=== PATIENT | male | born 1970 | race Caucasian/White ===

== ENCOUNTER 2023-09-29 22:56 | Inpatient (IN) | payer SELFPAY ==
[~2023-09-29] VITALS: Ht 180.3 cm; Wt 106.1 kg
--- NOTE | 2023-09-29 11:57 | NUR ---
REPORT RECEIVED FROM SANTOSH MENDIOLA
[~2023-09-29 22:56] MED LIST: Heparin Sodium,Porcine 5,000 UNIT/0.5 ML SDV SC ONE; Nitroglycerin 0.4 MG SUBL SL ONE
[2023-09-29] MEDS ORDERED: FentaNYL Citrate 50 MCG/ML 2 ML Injection IV ONE (23:10)
[2023-09-29 23:14] LABS: Hematocrit 45.4 % (37.0-53.0); Hemoglobin 15.6 g/dL (13.5-17.5); Mean Corpuscular HGB 29.7 pg (26.0-34.0); Mean Corpuscular HGB Conc 34.4 g/dL (31.5-36.5); Mean Corpuscular Volume 86 fL (80-100); Mean Platelet Volume 9.1 fL (9.1-12.4); Platelet Count 240 K/mm3 (150-400); RDW Coefficient Variation 13.4 % (11.7-14.2); RDW Standard Deviation 41.9 fL (35.1-46.3); Red Blood Cell Count 5.26 M/mm3 (4.30-5.90); White Blood Cell Count 10.44 K/mm3 (4.00-11.30)
[2023-09-29] MEDS ORDERED: Morphine Sulfate 4 MG/1 ML Injection IV ONE (23:20)
[2023-09-29] MEDS ORDERED: Ondansetron HCl 2 MG / ML 2ML Vial IV ONE (23:20)
[2023-09-29] MEDS ORDERED: Clopidogrel Bisulfate 75 MG Tab PO ONE (23:25)
[2023-09-29] MEDS ORDERED: Nitroglycerin 0.4 MG SUBL SL PRN (23:25)
[2023-09-29] MEDS ORDERED: Heparin Sodium,Porcine 5,000 UNIT/0.5 ML SDV SC ONE (23:25)
[2023-09-29 23:29] LABS: Albumin, Blood 3.6 g/dL (3.4-5.0); Albumin/Globulin Ratio 1.1 (0.8-1.8); Bilirubin, Total 0.4 mg/dL (0.1-1.0); Bun/Creatinine Ratio 16.5 (12.0-20.0); Calcium, Blood 8.8 mg/dL (8.5-10.1); Creatinine, Blood 1.03 mg/dL (0.60-1.20); Globulin, Blood 3.4 g/dL (2.2-4.0); Potassium, Blood 3.8 mmol/L (3.5-5.5)
[2023-09-29 23:37] LABS: BASOPHILS PERCENT MAN 0 % (0-2); EOSINOPHILS PERCENT MAN 0 % (0-6); LYMPHOCYTES % ATYPICAL MANUAL 1 % (0-0); LYMPHOCYTES PERCENT MAN 46 % (21-46); MONOCYTES ABSOLUTE MAN 0.93 K/mm3 (0.16-1.47); MONOCYTES PERCENT MAN 9 % (4-13); NEUTROPHILS ABSOLUTE MAN 4.59 K/mm3 (1.96-9.15); SEG NEUTROPHILS PERCENT MAN 44 % (41-73); TOTAL CELLS COUNTED 100
[2023-09-29 23:48] LABS: D-Dimer, Quantitative 0.61 mg/L FEU (0.00-0.52); International Normalized Ratio 0.93; Prothrombin Time Results 9.8 Sec (9.7-11.5)
[2023-09-29 23:48] LABS: CHOL/HDL RATIO 4.3; Cholesterol 181 mg/dL (50-200); HDL Cholesterol 42 mg/dL (>39); LDL/HDL RATIO 2.9; Low Density Lipoprotein Chol 123 mg/dL (0-110); Magnesium, Blood 2.2 mg/dL (1.6-2.4); Triglycerides 82 mg/dL (30-160); Very Low Density Lipoprot Chol 16 mg/dL (6-32)
[2023-09-29] MEDS ORDERED: Heparin Sodium 5000 Units/ML 1ML MDV IV ONE (23:50)
[2023-09-29] MEDS ORDERED: FentaNYL Citrate 50 MCG/ML 2 ML Injection ONE (23:54)
[2023-09-29] MEDS ORDERED: Heparin Sodium 1000 Units/ML 10ML MDV ONE ×2 (23:54→23:55)
[2023-09-29] MEDS ORDERED: Midazolam HCl 1MG / ML 2ML Vial ONE (23:54)
[2023-09-29] MEDS ORDERED: NS 1,000 ML IV ONE ×2 (23:54→23:55)
[2023-09-29] MEDS ORDERED: Tirofiban HCL Monohydrate 3.75 MG/15 ML Vial ONE (23:54)
[2023-09-29] MEDS ORDERED: Verapamil HCL 2.5 MG/ML 2ML Injection ONE (23:55)
[2023-09-29] MEDS ORDERED: NS 250 ML IV ONE (23:55)
[2023-09-30] VITALS (80 sets, daily range): BP systolic 117–168; BP diastolic 85–131
[2023-09-30] MEDS ORDERED: Morphine Sulfate 4 MG/1 ML Injection ONE (00:09)
[2023-09-30] MEDS ORDERED: FentaNYL Citrate 50 MCG/ML 2 ML Injection IV PRN ×2 (00:30→17:00)
[2023-09-30] MEDS ORDERED: FLU VACC QS2023-24(6MOS UP)/PF 60 MCG/0.5 ML SYRINGE IM ONE (00:30)
[2023-09-30] MEDS ORDERED: HydrALAZINE HCl 20 MG / ML 1ML Vial IV PRN (00:30)
[2023-09-30] MEDS ORDERED: NS 1,000 ML IV SCH (01:05)
--- NOTE | 2023-09-30 01:36 | NUR ---
ASSUMPTION OF CARE AT 0105 PT ARRIVED TO UNIT FROM [facility] MACHINE ADJUSTER VIA HOSPITAL BED AT 0105. PT ALERT, ORIENTED, AND COOPERATIVE WITH CARE. DENIES CHEST PAIN AND SOB AT THIS TIME. NO ACUTE NEEDS IDENTIFIED AT THIS TIME. SEE SHIFT ASSESSMENT FOR FULL DETAILS.
--- NOTE | 2023-09-30 06:02 | NUR ---
SHIFT SUMMARY PT REMAINED ALERT AND ORIENTED X 4 T/O ENTIRETY OF SHIFT. DENIED PAIN. ABLE TO FOLLOW VERBAL COMMANDS AND MAKES PURPOSEFUL MOVEMENTS. HR WAS SR IN 80'S. BP VERY ELEVATED - SBP'S ON 160'S AND DBP'S GREAT 130. DENIED CP T/O ENTIRETY OF SHIFT. PATIENT REMAINED ON ROOM AIR, DENIED SOB. NO BM THIS SHIFT. HEART HEALTHY DIET ORDERED. ONE UNMEASURED VOID INTO ROOM COMMODE. PT AMBULATED W/O DIFFICULTY - DENIED DIZZINESS, CHEST PAIN, OR SOB WITH AMBULATION. TR BAND TO R WRIST WITH SUCCESSFUL 13mL DEFLATION. 20G PIV TO LFA INFUSING NS AT 200mL/HR, 20G PIV TO RAC. CALL LIGHT IN REACH. WILL CONTINUE TO MONITOR AND REPORT TO ONCOMING NURSE.
--- NOTE | 2023-09-30 07:15 | NUR ---
Assumed care of pt at 0700. Bedside report received from Michael FROST and Kathleen FROST. Pt A&O x 4. Answers questions, follows commands, verbalizes needs. Pleasant and cooperative with care. Tallkative. SpO2 90% or greater RA. SR per monitor. BP high. Per report, provider aware of high BP over night. Plan to give scheduled doses of metoprolol and lisinopril.
[2023-09-30] MEDS ORDERED: Metoprolol Tartrate 25 MG Tab PO ONE (08:35)
[2023-09-30] MEDS ORDERED: Lisinopril 5 MG Tab PO ONE (08:35)
--- NOTE | 2023-09-30 08:45 | NUR ---
Dr Deleon in to see patient. Discussed high SBPs with provider who increased dose of lisinopril and metoprolol and ordered for additional doses to be given now.
[2023-09-30] MEDS ORDERED: Aspirin 81 MG Chew PO SCH ×2 (09:00)
[2023-09-30] MEDS ORDERED: Clopidogrel Bisulfate 75 MG Tab PO SCH (09:00)
[2023-09-30] MEDS ORDERED: Heparin Sodium,Porcine 5,000 UNIT/0.5 ML SDV SC SCH (09:00)
[2023-09-30] MEDS ORDERED: Atorvastatin 40 MG Tab PO SCH (09:00)
[2023-09-30] MEDS ORDERED: Metoprolol Tartrate 25 MG Tab PO SCH (09:00)
[2023-09-30] MEDS ORDERED: Lisinopril 5 MG Tab PO SCH (09:00)
[2023-09-30 09:26] LABS: U Amphetamine Screen Not Detected; U Barbituate Screen Not Detected; U Benzodiazapine Screen Not Detected; U Buprenorphine Screen Not Detected; U Cannabinoids Screen Not Detected; U Cocaine Screen Not Detected; U Methadone Screen Not Detected; U Methamphetamine Screen Not Detected; U Opiates Screen DETECTED; U Oxycodone Screen Not Detected; U Phencyclidine Screen Not Detected
[2023-09-30] MEDS ORDERED: Apixaban 5 MG Tab PO SCH (10:00)
[2023-09-30] MEDS ORDERED: Heparin Sodium,Porcine 5,000 UNIT/0.5 ML SDV SC ONE (10:45)
--- NOTE | 2023-09-30 11:00 | NUR ---
This RN was notified that pt was experiencing chest pain. He states he woke up, short of breath, but this has resovled. He states chest pain is 5/10 in severity and feels the same as it did when he presented to the emergency department, however at that time it was 10/10. Call placed to Dr Deleon who presented to bedside shortly afterwards. He reported that pt has clot in LV. Provider stated that eliquis is adequate and pt does not need heparin drip. Okay to give patient fentanyl for pain.
--- NOTE | 2023-09-30 11:29 | NUR ---
On pain reassessment, pt stated that pain had not improved. He also reported "cold-sweats". This RN noted that pt was profusely diaphoretic. Pt was also minimally talkative. Voice was soft and pt was preferring to speak in 2-3 word sentences. This is inconsistent behavior with what this RN noted previously in shift. Asked if he was feeling short of breath and he stated "not really" and stated "just feeling off, I'm not sure how to describe it. I'm usually over descriptive". Notified Dr Deleon who again presented to bedside and states plan to take patient to chemistry laboratory technician.
[2023-09-30] MEDS ORDERED: Verapamil HCL 2.5 MG/ML 2ML Injection ONE (11:35)
[2023-09-30] MEDS ORDERED: NS 250 ML IV ONE (11:36)
[2023-09-30] MEDS ORDERED: NS 1,000 ML IV ONE ×2 (11:36→11:55)
[2023-09-30] MEDS ORDERED: FentaNYL Citrate 50 MCG/ML 2 ML Injection ONE (11:55)
[2023-09-30] MEDS ORDERED: Midazolam HCl 1MG / ML 2ML Vial ONE (11:55)
--- NOTE | 2023-09-30 14:24 | NUR ---
Patient returned from r and d lab technician at 1255. No intervention performed. Right TR site with a reported 12 mL of air in band. SpO2 monitoring to R thumb. Color, sensation, pulses, capillary refill equal BUE. On return from lab, pt is in much better spirits, talking, smiling. States pain is 2/10.
--- NOTE | 2023-09-30 17:00 | NUR ---
Since coming back from [facility] laboratory technician, pt has been free of symptoms. Call with Dr Deleon to discuss plan of care should pain remerge. Increased dose of fentanyl prescribed. Notified provider that SBP has been in 140s and DBP has been 100-125s. Provider states these are acceptable values.
--- NOTE | 2023-09-30 17:30 | NUR ---
SUMMARY Neuro: A&O x 4. Answers questions, follows commands, verbalizes needs. Pleasant and cooperative with care. Moves all extremities with equal strength and range of motion. Resp: Lungs clear t/o. SpO2 90% or greater RA. Cardiac: SR per monitor. BP as mentioned in previous note. Color, sensation, pulses, capillary refill equal BUE. TR band deflated and site dressed with tegaderm. Wrist immobilization board remains in place. GI: Excellent PO intake of food and fluids. : Sits on edge of bed to void into urinal. Skin: Unchanged from initial assessment with exception of TR site discussed above. Psychosocial: Pt is updating family and friends using personal cellphone.
--- NOTE | 2023-09-30 18:22 | NUR ---
UPDATE SBP now in 160s. Call placed to discuss with Dr Deleon. Provider does not want IV hydralyzine used right now and instead provided new orders for PO medication.
[2023-09-30] MEDS ORDERED: Lisinopril 10 MG Tab PO ONE (18:25)
[2023-09-30] MEDS ORDERED: Labetalol HCL 100 MG TAB PO SCH (18:25)
--- NOTE | 2023-09-30 19:45 | NUR ---
ASSUMED CARE OF PATIENT AT 1900. REPORT RECEIVED FROM SANTOSH KAYE. PT DENIES CHEST PAIN AND SOB AT THIS TIME. VSS AND NO ACUTE NEEDS IDENTIFIED. SEE SHIFT ASSESSMENT FOR FULL ASSESSMENT DETAILS.
[2023-09-30] MEDS ORDERED: Famotidine 20 MG Tab PO SCH (21:00)
[2023-09-30] MEDS ORDERED: Metoprolol Tartrate 50 MG Tab PO SCH (21:00)
[2023-10-01] VITALS (36 sets, daily range): BP systolic 96–150; BP diastolic 74–117
--- NOTE | 2023-10-01 06:21 | NUR ---
SHIFT SUMMARY PATIENT REMAINED A&O X 4 THROUGHOUT ENTIRETY OF SHIFT. DENIED ANY PAIN. MADE PURPOSEFUL MOVEMENTS AND WAS ABLE TO FOLLOW VERBAL COMMANDS. MOVES WELL TO BEDISDE TO USE URINAL W/O ASSISTANCE. SR WITH HR IN 80'S-100'S. BP LABILE, DENIED CHEST PAIN. REMAINED ON RA T/O WITH O2 SATS > 93%. NO BM THIS SHIFT. UTILIZES BEDSIDE URINAL. R RADIAL SITE WNL. LFA PULLED WITH NEW LINE PLACED IN LAC - DRAWS AND FLUSHES WELL. PIV TO RFA FLUSHES WELL. CALL LIGHT IN REACH. WILL CONTINUE TO MONITOR AND REPORT TO ONCOMING RN.
[2023-10-01] MEDS ORDERED: Lisinopril 10 MG Tab PO SCH (09:00)
[2023-10-01] MEDS ORDERED: Lisinopril 20 MG Tab PO SCH (09:00)
--- NOTE | 2023-10-01 16:34 | NUR ---
ICU DAY SHIFT SUMMARY PT IS A/OX4. SR, BP WNL. NO N/V OR DIZZINESS REPORTED. ON ROOM AIR, LUNGS CTA, O2 SAT 98%. EATS 100% OF MEALS, IS ON A CARDIAC DIET. VOIDS USING BSC, AMBULATES TO THE BATHROOM INDEPENDENTLY. SKIN INTACT. RIGHT RADIAL CATH ACCESS SITE C/D/I. ARMBOARD IN PLACE TO REMIND PT NOT TO USE. EXPECTED D/C TOMORROW IF CONTINUES TO BE STABLE PER HOSPITALIST AND MACHINE STEAK TENDERIZER. CALLED REPORT TO RN ON MEDICAL FLOOR. PT TO BE TRANSFERRED TO [facility] WITH TELE ROOM 324. TAKE VIA W/C WITH ALL BELONGINGS. SHOWERED IN ICU PRIOR TO TRANSFER. POC ONGOING.
--- NOTE | 2023-10-01 17:11 | NUR ---
ASSUMED CARE NOTE ASSUMED CARE OF PT AT APPROX 1615. PT A&OX4, VSS, AMB IND, TOLERATING PO, VOIDING, AND DENIED PAIN. PT ORIENTED TO ROOM AND CALL LIGHT. CALL LIGHT WITHIN REACH AND PT ABLE TO MAKE NEEDS KNOWN.
[2023-10-02 04:01] VITALS: BP 115/98
[2023-10-02 08:27] VITALS: BP 122/95
--- NOTE | 2023-10-02 08:45 | NUR ---
SHIFT SUMMARY PT IS A&OX4, PLEASANT AND APPRECIATIVE. HOPEFUL TO DC 10/02/2023. VSS ON RA. NSR @ 97 PER TELEMETRY. THIS AM AT [id number] ELEVATION AND DEPRESSION. ASYMPTOMATIC, PT WAS SLEEPING. MD AWARE, NO NEW ORDERS. NO C/O CHEST PAIN/PRESSURE, NO SOB. DENIES PAIN. INDEPENDENT IN ROOM/BR. VOIDING IN BR, NO BM THIS SHIFT. BED IN LOWEST POSITION, CALL LIGHT WITHIN REACH.
[2023-10-02] MEDS ORDERED: ELIQUIS5 M2 PO (11:25)
[2023-10-02] MEDS ORDERED: ATOR80 PO (11:25)
[2023-10-02] MEDS ORDERED: CLOP75 PO (11:25)
[2023-10-02] MEDS ORDERED: LABE100 PO (11:25)
[2023-10-02] MEDS ORDERED: ASPI81CH PO (11:25)
[2023-10-02] MEDS ORDERED: LISI20 PO (11:26)
--- NOTE | 2023-10-02 14:16 | NUR ---
DISCHARGE NOTE PT DISCHARGED HOME AT APPROX 1330. PT PROVIDED W/ VERBAL AND WRITTEN INSTRUCTIONS AND REPORTED UNDERSTANDING. PT A&OX4, VSS, AMB/IND, TOLERATING PO, VOIDING, AND DENIED PAIN. BELONGINGS WERE RETURNED AND PT ESCOURTED OUT BY THIS NURSE AT 1411.
== END 2023-10-02 14:20 | disposition home or self-care (01) | DRG 321 ==
LOC: ER 22:56 → ICUE 22:57 → MEDS 10-01 16:22 → ENPENDDIS 10-02 11:02 → MEDS 10-02 14:20
PROVIDERS: Emergency Medicine; ADMIT Internal Medicine
PROC: 027034Z Dilation of Coronary Artery, One Artery with Drug-eluting Intraluminal Device, Percutaneous Approach (ICD-10-PCS; principal; 2023-09-30)
PROC: 02703ZZ Dilation of Coronary Artery, One Artery, Percutaneous Approach (ICD-10-PCS; 2023-09-30)
PROC: B2111ZZ Fluoroscopy of Multiple Coronary Arteries using Low Osmolar Contrast (ICD-10-PCS; 2023-09-30)
PROC: B2111ZZ Fluoroscopy of Multiple Coronary Arteries using Low Osmolar Contrast (ICD-10-PCS; 2023-09-30)
DX: I21.09 ST elevation (STEMI) myocardial infarction involving other coronary artery of anterior wall (principal); I25.42 Coronary artery dissection; I51.3 Intracardiac thrombosis, not elsewhere classified; I10 Essential (primary) hypertension; F17.200 Nicotine dependence, unspecified, uncomplicated; I25.118 Atherosclerotic heart disease of native coronary artery with other forms of angina pectoris; G89.18 Other acute postprocedural pain; Z71.6 Tobacco abuse counseling
CPT/HCPCS: 36415; 71045; 76937; 80053; 80061; 83605; 83690; 83735; 84484; 85025; 85379; 85610; 85730; 86850; 86900; 86901; 92944; 93005; 93010; 93454; 96374; 96375; 99152; 99153; 99285-25; A9270; C1725; C1769; C1874; C1887; C1894; C8929; C9606; J1644; J2250; J2270; J2405; J3010; J3246; J7030; J7050; Q9957; Q9967